=== PATIENT | female | born 1945 | race Caucasian/White ===

== ENCOUNTER → 2018-04-02 | Outpatient (CLI) | payer MEDICARE, OTHER ==
[~2018-04-02] MED LIST: AMOCLA875 PO; ASCO500 PO; CALCAVITD PO; CHOL10002 PO; FISH1000 PO; HYDACE5 PO; MECL25 PO; METR500 PO
== END | disposition home or self-care (01) ==
LOC: LAB EV 16:18 → LAB SHORT 16:18
DX: N39.0 Urinary tract infection, site not specified (principal)
CPT/HCPCS: 87086

== ENCOUNTER → 2018-10-12 | Outpatient (CLI) | payer MEDICARE, OTHER | END | disposition home or self-care (01) | LOC: LAB SHORT 09:00 → LAB EV 09:00 | DX: N39.0 Urinary tract infection, site not specified (principal) | CPT/HCPCS: 87077; 87086; 87186 ==

== ENCOUNTER → 2018-11-01 | Outpatient (CLI) | payer MEDICARE, OTHER | LOC: LAB SHORT 10:35 → LAB EV 10:35 | DX: N39.0 Urinary tract infection, site not specified (principal) | CPT/HCPCS: 87077; 87086; 87186 ==

== ENCOUNTER → 2019-02-17 | Outpatient (CLI) | payer MEDICARE, OTHER | END | disposition home or self-care (01) | LOC: LAB EV 10:15 → LAB SHORT 10:15 | DX: R30.0 Dysuria (principal) | CPT/HCPCS: 87077; 87086; 87186 ==

== ENCOUNTER → 2020-04-01 | Outpatient (CLI) | payer MEDICARE, OTHER | END | disposition home or self-care (01) | LOC: LAB 08:37 → LAB SHORT 08:37 → PLD 08:37 | DX: N39.0 Urinary tract infection, site not specified (principal) | CPT/HCPCS: 87077; 87086; 87186 ==

== ENCOUNTER → 2020-04-18 | Outpatient (CLI) | payer MEDICARE, OTHER | END | disposition home or self-care (01) | LOC: LAB EV 11:13 → LAB SHORT 11:13 | DX: N39.0 Urinary tract infection, site not specified (principal) | CPT/HCPCS: 87086 ==

== ENCOUNTER → 2021-07-02 | Outpatient (CLI) | payer MEDICARE, OTHER | END | disposition home or self-care (01) | LOC: LAB SHORT 10:30 → LAB 10:30 | DX: R82.79 Other abnormal findings on microbiological examination of urine (principal) | CPT/HCPCS: 87077; 87086; 87186 ==

== ENCOUNTER → 2021-07-09 | Outpatient (CLI) | payer MEDICARE, OTHER | END | disposition home or self-care (01) | LOC: LAB 11:00 → LAB SHORT 11:00 | DX: R30.9 Painful micturition, unspecified (principal) | CPT/HCPCS: 87077; 87086; 87186 ==

== ENCOUNTER → 2022-02-24 | Outpatient (CLI) | payer MEDICARE, OTHER | END | disposition home or self-care (01) | LOC: LAB SHORT 08:00 → LAB 08:00 | DX: R30.9 Painful micturition, unspecified (principal) | CPT/HCPCS: 87086 ==

== ENCOUNTER 2022-05-05 09:41 | Day surgery (SDC) | payer MEDICARE, OTHER ==
[~2022-05-05] VITALS: Ht 167.6 cm; Wt 89.3 kg
[2022-05-05] MEDS ORDERED: FAMO10 (10:15)
[2022-05-05 11:58] VITALS: BP 106/70
== END 2022-05-05 12:00 | disposition home or self-care (01) ==
LOC: ORSCSDS 09:41
PROVIDERS: Surgery
PROC: 0DJD8ZZ Inspection of Lower Intestinal Tract, Via Natural or Artificial Opening Endoscopic (ICD-10-PCS; principal; 2022-05-05 11:00)
DX: Z12.11 Encounter for screening for malignant neoplasm of colon (principal); Z90.49 Acquired absence of other specified parts of digestive tract; K57.30 Diverticulosis of large intestine without perforation or abscess without bleeding; J45.909 Unspecified asthma, uncomplicated
CPT/HCPCS: J0330; J0461; J2001; J2405; J2704; J7120; Q9968

== ENCOUNTER 2023-11-03 06:09 | Day surgery (SDC) | payer MEDICARE, OTHER ==
[~2023-11-03] VITALS: Ht 165.1 cm; Wt 91.0 kg
[2023-11-03] VITALS (10 sets, daily range): BP systolic 118–168; BP diastolic 65–87
[~2023-11-03 06:09] MED LIST changes: +ASPI81CH PO; +ATOR40TA PO; +Bisoprolol Fumar5 MG PO; +FAMO10
[2023-11-03] MEDS ORDERED: Heparin Sodium 1000 Units/ML 10ML MDV ONE (06:38)
[2023-11-03] MEDS ORDERED: NS 250 ML IV ONE (06:38)
[2023-11-03] MEDS ORDERED: NS 1,000 ML IV ONE ×2 (06:38→07:39)
[2023-11-03] MEDS ORDERED: NiCARdipine HCL 1,000 MCG/5 ML SYR ONE (06:38)
[2023-11-03] MEDS ORDERED: Nitroglycerin 2 MG/20 ML BTL ONE (06:38)
[2023-11-03] MEDS ORDERED: Verapamil HCL 2.5 MG/ML 2ML Injection ONE (07:11)
[2023-11-03] MEDS ORDERED: Midazolam HCl 1MG / ML 2ML Vial ONE (07:39)
--- NOTE | 2023-11-03 09:00 | NUR ---
PATIENT ARRIVED BACK TO RECOVERY ROOM IN RECLINER. R ULNAR SITE WITH TR BAND C/D/I SOFT/NONTNEDER, NO EVIDENCE OF BLEEDING. VSS ON RA. PATIENT AMBULATING TO RESTROOM WITHOUT DIFFICULTY.
--- NOTE | 2023-11-03 09:30 | NUR ---
PATIENT RESTING IN RECLINER COMFORTABLY. PATIENT TOLERATING PO INTAKE WELL. VSS ON RA
[2023-11-03] MEDS ORDERED: FURO40 PO (09:56)
--- NOTE | 2023-11-03 10:00 | NUR ---
INITIAL 2 CC OF AIR REMOVED FROM R ULNAR TR BAND. SITE C/D/I SOFT/NONTENDER, NO EVIDENCE OF BLEEDING. VSS ON RA. PATIENT RESTING COMFRTABLY IN RECLINER
--- NOTE | 2023-11-03 10:31 | NUR ---
ALL AIR REMOVED FROM R ULNAR TR BAND. SITE C/D/I SOFT/NONTENDER, NO EVIDENCE OF BLEEDING. VSS ON RA
--- NOTE | 2023-11-03 11:30 | NUR ---
PATIENT DISCHARGED HOME AT THIS TIME. DISCHARGE INSTRUCTIONS REVIEWED WITH PATIENT. ALL QUESTIONS WERE ANSWERED. NEW MEDICATION FAXED TO PATIENT PREFERRED PHARMACY. PIV REMOVED WITHOUT DIFFICULTY, CATHETER INTACT. TR BAND REMOVED, CLOTH DOT IN PLACE. PATIENT WHEELED TO HOSPITAL ENTRANCE AND SPOUSE ABLE TO PROVIDE TRANSPORTATION HOME.
== END 2023-11-03 11:30 | disposition home or self-care (01) ==
LOC: MHTC 06:09
DX: I42.0 Dilated cardiomyopathy (principal); I25.10 Atherosclerotic heart disease of native coronary artery without angina pectoris; I42.8 Other cardiomyopathies; I27.22 Pulmonary hypertension due to left heart disease; E78.5 Hyperlipidemia, unspecified; Z88.5 Allergy status to narcotic agent; Z79.82 Long term (current) use of aspirin; Z79.899 Other long term (current) drug therapy
CPT/HCPCS: 76937; 93460; 99152; A9270; C1769; C1894; J1644; J2250; J7030; J7050; Q9967

== ENCOUNTER 2023-11-08 09:55 | Emergency (ER) | payer MEDICARE, OTHER ==
[~2023-11-08] VITALS: Ht 165.1 cm; Wt 90.7 kg
[~2023-11-08 09:55] MED LIST changes: +FURO40 PO
[2023-11-08 10:14] VITALS: BP 132/81
== END 2023-11-08 11:08 | disposition home or self-care (01) ==
LOC: ER 09:55
DX: R58 Hemorrhage, not elsewhere classified (principal); I10 Essential (primary) hypertension; E78.5 Hyperlipidemia, unspecified; Z98.890 Other specified postprocedural states; Z88.5 Allergy status to narcotic agent; Z88.8 Allergy status to other drugs, medicaments and biological substances; Z79.82 Long term (current) use of aspirin; Z79.899 Other long term (current) drug therapy
CPT/HCPCS: 93971; 99283-25

== ENCOUNTER 2023-11-11 21:35 | Emergency (ER) | payer MEDICARE, OTHER ==
[~2023-11-11] VITALS: Ht 165.1 cm; Wt 90.7 kg
[2023-11-11 21:48] VITALS: BP 147/98
== END 2023-11-11 22:20 | disposition home or self-care (01) ==
LOC: ER 21:35
DX: Z48.812 Encounter for surgical aftercare following surgery on the circulatory system (principal); I10 Essential (primary) hypertension; E78.5 Hyperlipidemia, unspecified; Z79.82 Long term (current) use of aspirin; Z79.899 Other long term (current) drug therapy; Z88.5 Allergy status to narcotic agent; Z88.8 Allergy status to other drugs, medicaments and biological substances
CPT/HCPCS: 99282

== ENCOUNTER → 2024-08-30 | Outpatient (CLI) | payer MEDICARE, OTHER ==
[2024-08-30 09:48] LABS: Stool Occult Bld Immuno 1 Negative (NEGATIVE)
== END ==
LOC: LAB SHORT 07:20 → LAB 07:20
PROVIDERS: Family Medicine
DX: K92.1 Melena (principal)
CPT/HCPCS: 82274